=== PATIENT | male | born 1990 | race Caucasian/White ===

== ENCOUNTER 2017-03-28 08:37 | Emergency (ER) | payer OTHER ==
[~2017-03-28] VITALS: Ht 193 cm; Wt 122.5 kg
--- NOTE | ~2017-03-28 | EKG ---
[place] [address] [facility] [place] [address] ELECTROCARDIOGRAM REPORT Name: SIMEON YODER Room #: DEP AIDA Hayes#: [id number] Admission: 03/28/17 Attend Phys: Discharge: 03/28/17 Date of : 89 Report #: [id number] THIS REPORT FOR: //name// [facility] ED Test Date: 2017-03-28 Test Time: 09:22:54 Pat Name: SIMEON YODER Department: Room: Gender: Paver Layer: : 1990 Requested By: Eliecer Arriola Order Number: [id number] MD: Stanislaw Roe Measurements Intervals Ferdinand Rate: 65 P: 16 AR: 174 QRS: 16 QRSD: 106 T: 53 QT: 418 QTc: 435 Interpretive Statements Sinus rhythm ST elev, probable normal early repol pattern No previous ECG available for comparison Electronically Signed On 03-30-2017 22:04:37 CDT by Stanislaw Roe [email or web address] <ELECTRONICALLY SIGNED> By: Stanislaw Roe MD 03/30/17 2204 0922 0922 Stanislaw Roe MD /OKSANA
[2017-03-28] MEDS ORDERED: CLONAZEPAM 1 MG1 M1 PO (08:47)
[2017-03-28] MEDS ORDERED: LOMAIRA8 MG PO (08:49)
[2017-03-28 09:10] LABS: ABSOLUTE NEUTROPHILS 4.8 thou/uL (1.4-8.2); BASOPHILS 0.7 % (0.0-2.0); EOSINOPHILS 4.2 % (0.0-3.0); HEMATOCRIT 49.3 % (42.0-52.0); HEMOGLOBIN 16.8 gm/dL (14.0-18.0); LYMPHOCYTES 34.6 % (24.0-44.0); MCHC 34.1 g/dL (28.0-37.0); MCV 85.1 fL (80.0-100.0); MONOCYTES 10.3 % (1.0-8.0); PLATELET COUNT 315 thou/uL (150-400); POLYS 50.2 % (36.0-66.0); RBC 5.79 mil/uL (4.50-6.00); RDW 13.1 % (10.5-14.5); WBC 9.6 thou/uL (4.0-11.0)
[2017-03-28 09:12] LABS: MANUAL DIFF NO
[2017-03-28 09:17] LABS: ANION GAP 13 mmol/L (7-16); BUN 25 mg/dL (7-18); CALCIUM 9.9 mg/dL (8.5-10.1); CHLORIDE 102 mmol/L (98-107); CO2 21 mmol/L (21-32); CREATININE 1.3 mg/dL (0.7-1.3); GLUCOSE 173 mg/dL (74-106); POTASSIUM 4.1 mmol/L (3.5-5.1); SODIUM 136 mmol/L (136-145)
[2017-03-28 09:25] LABS: MAGNESIUM 2.1 mg/dL (1.8-2.4); TROPONIN-I < 0.04 ng/mL (<0.04-0.07)
[2017-03-28] MEDS ORDERED: DIPHENHIST50 MG PO (11:09)
[2017-03-28 11:21] VITALS: BP 119/73
== END 2017-03-28 11:22 | disposition home or self-care (01) ==
LOC: ER 08:37
PROVIDERS: Emergency Medicine
DX: R06.02 Shortness of breath (principal); F41.9 Anxiety disorder, unspecified; R21 Rash and other nonspecific skin eruption